=== PATIENT | male | born 1965 | race Caucasian/White ===

== ENCOUNTER 2021-02-20 11:09 | Emergency (ER) | payer BC ==
[~2021-02-20] VITALS: Ht 185.4 cm; Wt 122.5 kg
[~2021-02-20 11:09] MED LIST: CLARITIN10 MG PO; ECOTRIN81 MG PO; FLOMAX0.4 MG PO; FLONASE 0.05% N16 GM; KEFLEX CAP 500500 MG PO; LEVAQUIN500 MG PO; LIPITOR TAB 1010 MG PO
== END 2021-02-20 14:40 | disposition home or self-care (01) ==
LOC: ER1 11:09
DX: U07.1 COVID-19 (principal); Z23 Encounter for immunization; E78.5 Hyperlipidemia, unspecified
CPT/HCPCS: 99283; M0245